=== PATIENT | female | born 1945 | race Caucasian/White ===

== ENCOUNTER 2021-02-18 10:59 | Inpatient (IN) | payer BC, OTHER ==
[2021-02-18 12:24] LABS: BASO % 0.6 % (0-2.0); EOS % 1.2 % (0-4.5); HEMATOCRIT 38.7 % (32.4-45.2); MCH 30.8 pg (25.7-33.7); MCHC 33.5 g/dl (32.0-36.0); MEAN PLT VOLUME 9.1 fl (7.5-11.1); MONO % 5.4 % (3.8-10.2); NEUT % 79.8 % (42.8-82.8); PLATELET COUNT 252 K/MM3 (134-434); RDW 14.5 % (11.6-15.6); WHITE BLOOD COUNT 10.8 K/mm3 (4.0-10.0)
[2021-02-18] MEDS ORDERED: ALTEPLASE 100 MG VIAL IVPB ONE (12:28)
[2021-02-18 12:30] LABS: INR 0.96 (0.83-1.09); PROTHROMBIN TIME (PATIENT) 11.8 SEC (9.7-13.0)
[2021-02-18 12:32] LABS: ACTIVATED PTT 24.6 SECONDS (25.2-36.5)
[2021-02-18] MEDS ORDERED: ALTEPLASE 100MG 100 MG ONE (12:32)
[2021-02-18 12:45] LABS: BLOOD UREA NITROGEN 14.6 mg/dL (7-18); CALCIUM 8.6 mg/dL (8.5-10.1)
[2021-02-18 12:46] LABS: ALBUMIN 3.3 g/dl (3.4-5.0)
[2021-02-18 12:47] LABS: CHOLESTEROL 212 mg/dL (50-200)
[2021-02-18 12:48] LABS: CREATININE 0.9 mg/dL (0.55-1.3); TRIGLYCERIDES 193 mg/dL (0-150)
[2021-02-18 12:49] LABS: LDL CHOLESTEROL (ONLY SJRH) 117 mg/dL (5-100)
[2021-02-18 12:50] LABS: BILIRUBIN,TOTAL 0.3 mg/dL (0.2-1); HDL CHOLESTEROL 56 mg/dL (40-60); TOT PROT 7.1 g/dl (6.4-8.2)
[2021-02-18] MEDS ORDERED: ONDANSETRON 4 MG/2 ML VIAL IVPUSH ONE (13:09)
[2021-02-18 13:24] LABS: URINE APPEARANCE CLEAR; URINE BILIRUBIN NEGATIVE (NEGATIVE); URINE COLOR YELLOW; URINE GLUCOSE (UA) TRACE (NEGATIVE); URINE KETONE NEGATIVE (NEGATIVE); URINE LEUK ESTERASE NEGATIVE (NEGATIVE); URINE NITRITE NEGATIVE (NEGATIVE); URINE PROTEIN NEGATIVE (NEGATIVE); URINE UROBILINOGEN 0.2 mg/dL (0.2-1.0)
[2021-02-18] MEDS ORDERED: ONDANSETRON 4 MG/2 ML VIAL ONE (14:27)
[2021-02-18] MEDS ORDERED: DEXTROSE 50%-WATER - 25 GM/50 ML VIAL IVPUSH ONE (16:09)
[2021-02-18] MEDS ORDERED: ACETAMINOPHEN 1000 MG/100 ML VIAL (NON FORMULARY) IVPB PRN (17:27)
[2021-02-18] MEDS: ROSUVASTATIN CA 10 MG TABLET (FP) PO SCH (22:00)
[2021-02-19] MEDS ORDERED: MELATONIN 5 MG TABLETS PO ONE (00:19)
[2021-02-19 07:02] LABS: ALBUMIN 2.8 g/dl (3.4-5.0); CALCIUM 8.3 mg/dL (8.5-10.1)
[2021-02-19 07:03] LABS: BASO % 1.2 % (0-2.0); BLOOD UREA NITROGEN 13.9 mg/dL (7-18); EOS % 2.7 % (0-4.5); HEMATOCRIT 36.1 % (32.4-45.2); HEMOGLOBIN 12.2 GM/dL (10.7-15.3); LYMPH % 26.1 % (8-40); MAGNESIUM 1.9 mg/dL (1.8-2.4); MCHC 33.9 g/dl (32.0-36.0); MEAN CELL VOLUME 91.6 fl (80-96); MEAN PLT VOLUME 9.2 fl (7.5-11.1); MONO % 7.9 % (3.8-10.2); NEUT % 62.1 % (42.8-82.8); PLATELET COUNT 246 K/MM3 (134-434); RBC 3.94 M/mm3 (3.60-5.2); RDW 14.3 % (11.6-15.6); WHITE BLOOD COUNT 9.2 K/mm3 (4.0-10.0)
[2021-02-19 07:07] LABS: BILIRUBIN,TOTAL 0.4 mg/dL (0.2-1); CREATININE 0.7 mg/dL (0.55-1.3); PHOSPHOROUS 4.1 mg/dL (2.5-4.9); TOT PROT 6.1 g/dl (6.4-8.2)
[2021-02-19 07:10] LABS: INR 1.04 (0.83-1.09); PROTHROMBIN TIME (PATIENT) 12.8 SEC (9.7-13.0)
[2021-02-19 07:12] LABS: ACTIVATED PTT 25.5 SECONDS (25.2-36.5)
[2021-02-19] MEDS: MUPIROCIN 2% TOPICAL OINTMENT FOR DECOLONIZATION NS SCH ×2 (11:15→21:48)
[2021-02-19] MEDS: CHLORHEXIDINE GLUCONATE 4% CLEANSER FOR DECOLONIZATION TP SCH (21:51)
[2021-02-19] MEDS: ROSUVASTATIN CA 10 MG TABLET (FP) PO SCH (21:52)
[2021-02-20 06:00] LABS: BASO % 0.9 % (0-2.0); EOS % 3.1 % (0-4.5); HEMATOCRIT 37.7 % (32.4-45.2); HEMOGLOBIN 12.9 GM/dL (10.7-15.3); LYMPH % 20.3 % (8-40); MCH 31.3 pg (25.7-33.7); MCHC 34.2 g/dl (32.0-36.0); MEAN CELL VOLUME 91.6 fl (80-96); MEAN PLT VOLUME 8.8 fl (7.5-11.1); NEUT % 68.7 % (42.8-82.8); PLATELET COUNT 247 K/MM3 (134-434); RBC 4.11 M/mm3 (3.60-5.2); RDW 14.1 % (11.6-15.6); WHITE BLOOD COUNT 8.4 K/mm3 (4.0-10.0)
[2021-02-20 06:19] LABS: CALCIUM 8.4 mg/dL (8.5-10.1)
[2021-02-20 06:20] LABS: MAGNESIUM 1.9 mg/dL (1.8-2.4)
[2021-02-20 06:23] LABS: CREATININE 0.7 mg/dL (0.55-1.3)
[2021-02-20 06:24] LABS: BILIRUBIN,TOTAL 0.5 mg/dL (0.2-1); PHOSPHOROUS 3.7 mg/dL (2.5-4.9); TOT PROT 6.4 g/dl (6.4-8.2)
[2021-02-20] MEDS: MUPIROCIN 2% TOPICAL OINTMENT FOR DECOLONIZATION NS SCH ×2 (09:55→22:19)
[2021-02-20] MEDS ORDERED: ONDANSETRON 4 MG/2 ML VIAL IVPUSH PRN (14:10)
[2021-02-20] MEDS ORDERED: HYDROmorphone HCl 2 MG/ML VIAL IVPUSH PRN (14:11)
[2021-02-20] MEDS ORDERED: ACETAMINOPHEN 1000 MG/100 ML VIAL (NON FORMULARY) IVPB PRN (14:11)
[2021-02-20 18:28] VITALS: BMI 64.1
[2021-02-20] MEDS ORDERED: BISACODYL 10 MG SUPP.RECT PR PRN (21:55)
[2021-02-20] MEDS: ROSUVASTATIN CA 10 MG TABLET (FP) PO SCH (22:19)
[2021-02-20] MEDS: CHLORHEXIDINE GLUCONATE 4% CLEANSER FOR DECOLONIZATION TP SCH (22:19)
[2021-02-20] MEDS: POLYETHYLENE GLYCOL 3350 119 GM BTL PO SCH (22:19)
[2021-02-21 07:53] LABS: CALCIUM 8.4 mg/dL (8.5-10.1)
[2021-02-21 07:57] LABS: CREATININE 0.7 mg/dL (0.55-1.3); PHOSPHOROUS 2.7 mg/dL (2.5-4.9)
[2021-02-21 08:52] LABS: HEMATOCRIT 37.9 % (32.4-45.2); HEMOGLOBIN 12.8 GM/dL (10.7-15.3); MCH 30.8 pg (25.7-33.7); MCHC 33.7 g/dl (32.0-36.0); MEAN CELL VOLUME 91.2 fl (80-96); MEAN PLT VOLUME 8.9 fl (7.5-11.1); PLATELET COUNT 248 K/MM3 (134-434); RBC 4.16 M/mm3 (3.60-5.2); RDW 13.9 % (11.6-15.6); WHITE BLOOD COUNT 9.1 K/mm3 (4.0-10.0)
[2021-02-21] MEDS ORDERED: MUPIROCIN 2% TOPICAL OINTMENT FOR DECOLONIZATION NS SCH (10:00)
[2021-02-21] MEDS: POLYETHYLENE GLYCOL 3350 119 GM BTL PO SCH ×2 (12:09→21:48)
[2021-02-21] MEDS ORDERED: SENNOSIDES 8.6MG TABLET (FP) PO ONE (14:20)
[2021-02-21] MEDS ORDERED: ROSUVASTATIN CA 10 MG TABLET (FP) PO SCH (22:00)
[2021-02-21] MEDS ORDERED: CHLORHEXIDINE GLUCONATE 4% CLEANSER FOR DECOLONIZATION TP SCH (22:00)
[2021-02-22 09:29] LABS: BASO % 0.9 % (0-2.0); EOS % 5.3 % (0-4.5); HEMATOCRIT 36.1 % (32.4-45.2); HEMOGLOBIN 12.5 GM/dL (10.7-15.3); LYMPH % 27.1 % (8-40); MCH 31.3 pg (25.7-33.7); MCHC 34.6 g/dl (32.0-36.0); MEAN CELL VOLUME 90.6 fl (80-96); MEAN PLT VOLUME 8.9 fl (7.5-11.1); MONO % 9.6 % (3.8-10.2); NEUT % 57.1 % (42.8-82.8); PLATELET COUNT 249 K/MM3 (134-434); RBC 3.98 M/mm3 (3.60-5.2); RDW 13.8 % (11.6-15.6); WHITE BLOOD COUNT 7.8 K/mm3 (4.0-10.0)
[2021-02-22 10:00] LABS: ALBUMIN 2.9 g/dl (3.4-5.0); BLOOD UREA NITROGEN 11.2 mg/dL (7-18); CALCIUM 8.6 mg/dL (8.5-10.1); MAGNESIUM 1.9 mg/dL (1.8-2.4)
[2021-02-22 10:03] LABS: CREATININE 0.9 mg/dL (0.55-1.3)
[2021-02-22 10:05] LABS: BILIRUBIN,TOTAL 0.5 mg/dL (0.2-1); TOT PROT 6.4 g/dl (6.4-8.2)
[2021-02-22] MEDS ORDERED: POTASSIUM CHLORIDE TABS 20 MEQ TABLET.ER (FP) PO ONE (13:37)
[2021-02-22] MEDS: POLYETHYLENE GLYCOL 3350 119 GM BTL PO SCH ×2 (14:15→21:35)
[2021-02-22] MEDS ORDERED: ROSUVASTATIN CA 20 MG TABLET (FP) PO SCH (14:47)
[2021-02-23 06:17] VITALS: PULSE 70; TEMP 98.8
[2021-02-23 07:49] LABS: BASO % 0.6 % (0-2.0); EOS % 6.7 % (0-4.5); HEMATOCRIT 35.7 % (32.4-45.2); HEMOGLOBIN 12.2 GM/dL (10.7-15.3); LYMPH % 35.7 % (8-40); MCH 31.1 pg (25.7-33.7); MCHC 34.1 g/dl (32.0-36.0); MEAN CELL VOLUME 91.2 fl (80-96); MEAN PLT VOLUME 9.5 fl (7.5-11.1); PLATELET COUNT 244 K/MM3 (134-434); RBC 3.92 M/mm3 (3.60-5.2); RDW 13.9 % (11.6-15.6); WHITE BLOOD COUNT 6.9 K/mm3 (4.0-10.0)
[2021-02-23 08:05] VITALS: BP 121/70
[2021-02-23 08:12] LABS: BLOOD UREA NITROGEN 15.5 mg/dL (7-18); CALCIUM 8.2 mg/dL (8.5-10.1)
[2021-02-23 08:13] LABS: ALBUMIN 2.9 g/dl (3.4-5.0); MAGNESIUM 1.9 mg/dL (1.8-2.4)
[2021-02-23 08:16] LABS: CREATININE 0.7 mg/dL (0.55-1.3)
[2021-02-23 08:19] LABS: BILIRUBIN,TOTAL 0.4 mg/dL (0.2-1); TOT PROT 6.2 g/dl (6.4-8.2)
[2021-02-23] MEDS ORDERED: ASPIRIN 81 MG CHEWABLE TABLETS PO SCH (10:00)
[2021-02-23] MEDS: POLYETHYLENE GLYCOL 3350 119 GM BTL PO SCH (10:06)
== END 2021-02-23 15:38 | disposition home health service (06) | DRG 62 ==
LOC: JER 10:59 → JERBED 13:13 → JICU 23:34 → J4W 02-20 22:55
PROVIDERS: ADMIT Internal Medicine Pulmonary Disease; ATTEND Nurse Practitioner Acute Care
DX: I63.9 Cerebral infarction, unspecified (principal); Z68.44 Body mass index [BMI] 60.0-69.9, adult; E66.01 Morbid (severe) obesity due to excess calories; I10 Essential (primary) hypertension; R47.1 Dysarthria and anarthria; E78.5 Hyperlipidemia, unspecified; I48.0 Paroxysmal atrial fibrillation; K59.00 Constipation, unspecified
CPT/HCPCS: 36415; 70450-TC; 70496-TC; 70498-TC; 70551-TC; 71045-TC-FY; 80048; 80053; 80061; 81003; 82550; 82962; 83605; 83721; 83735; 84100; 84484; 85025; 85027; 85610; 85730; 86769; 86850; 86900; 86901; 87086; 93005; 93010; 93306-TC; 93880-TC; 93971; 97116-GP; 97161-GP; 99291; C9803; J0131; J2997; Q9967; U0003; U0005